=== PATIENT | male | born 1945 | race Asian ===

== ENCOUNTER 2019-11-06 14:36 | Observation (INO) | payer OTHER ==
--- NOTE | 2019-11-06 15:08 | PDOC ---
History of Present Illness - General Chief Complaint: Syncope/Near Syncope Stated Complaint: POSSIBLE SEIZURE Time Seen by Provider: 11/06/19 15:07 History Source: Patient Exam Limitations: No Limitations - History of Present Illness Initial Comments: 11/06/19 15:07 PCP: Dr. 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 Patient was at a family libertarian, reportedly did not eat or drink anything this morning, drank some sweetened milk and shortly thereafter felt lightheaded. Said he did not feel good, sat down. He experienced hand trembling and a slight head shaking , while talking with his daughters, for about 5 seconds. No CP / SOB / LH / Dizz at this time. These symptoms resolved by the time they took his BP (140s) and BGM (117). They called 911 to be safe and presented to the ED. Patient now feels at baseline. Denies chest pain, SOB, fever, chills, recent illness, cough , dyspnea, dysuria, leg swelling, numbness, tingling, weakness. No prior episodes of anything similar to this. No line service supervisor or cardiac history other than HTN. NKDA Meds per chart PMH: HTN PSH: Denies, remote toe procedure Past History - Past Medical History Allergies/Adverse Reactions: Allergies Allergy/AdvReac Type Severity Reaction Status Date / Time No Known Allergies Allergy Verified 02/18/15 22:40 Home Medications: Ambulatory Orders Metaxalone [Skelaxin] 800 mg PO TID PRN #15 tablet 02/18/15 Oxycodone HCl/Acetaminophen [Percocet 5/325 -] 1 tab PO Q6H PRN #12 tablet 02/18 HTN: Yes - Immunization History Immunization Up to Date: Yes - Psycho Social/Smoking Cessation Hx Smoking History: Never smoked Have you smoked in the past 12 months: No Hx Alcohol Use: No Drug/Substance Use Hx: No Substance Use Type: None Review of Systems - Review of Systems Able to Perform ROS?: Yes Is the patient limited Greenlandic proficient: Yes Constitutional: No: Chills, Fever, Weakness Cardiac (ROS): Yes: Syncope (pre-syncope). No: Chest Pain, Edema, Irregular Heart Rate, Lightheadedness, Palpitations, Chest Tightness ABD/GI: Yes: Poor Fluid Intake (this morning, good since). No: Constipated, Diarrhea, Nausea, Poor Appetite, Rectal Bleeding, Vomiting : No: Burning, Dysuria, Frequency Musculoskeletal: No: Muscle Pain, Muscle Weakness, Neck Pain Integumentary: No: Bruising, Pruritus, Rash Neurological: No: Headache, Numbness, Tingling, Weakness Psychiatric: No: Stressors, Change in Appetite Endocrine: No: Increased Thirst, Increased Urine Hematologic/Lymphatic: No: Anemia, Blood Clots, Easy Bleeding All Other Systems: Reviewed and Negative *Physical Exam - Vital Signs Last Vital Signs Temp Pulse Resp BP Pulse Ox 98.0 F 79 16 136/77 96 11/06/19 14:57 11/06/19 14:57 11/06/19 14:57 11/06/19 14:57 11/06/19 14:57 - Physical Exam 11/06/19 16:10 Vitals reviewed, AFVSS GEN: Well appearing, appears stated age, NAD, comfortable. AAOx3. HEENT: NCAT, EOMI, PERRL. Sclera anicteric, non-injected. No facial asymmetry. Moist mucous membranes. Normal voice. Trachea midline. CV: RRR, S1/S2, no murmurs / rubs / gallops appreciated. LUNG: CTAB, normal work of breathing. No wheezes, rales, rhonchi. No cough. Speaking full sentences. GI: Soft, NTND, +BS, no guarding, no rebound. No masses. Neg CVAT b/l. EXTREMITIES: 2+ distal pulses. No LE edema. No obvious deformities of all extremities. SKIN: Warm, dry, no rashes appreciated, non-jaundiced. PSYCH: Normal mood and affect. Cooperative and appropriate. NEURO: CN 2-12 intact. Moving all extremities well. Normal strength and sensation throughout. 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 History concerning for left sided hand shaking (focal) and reassuring for rapid symptomatic resolution. Exam unremarkable, vitals stable. DDX: R/o ACS, arrhythmia, less likely seizure given history will assess for mass lesion / ICH , most likely hypovolemia vs orthostatics vs vasovagal, electrolyte derivations. - CBC, CMP, Cardiac Profile - EKG, CXR - NCT EK BPM, NSR, borderline axis, QTc 424, T wave inversions in V4-V6 No prior EKGs available for comparison, patient without a line service supervisor, not aware of prior EKG changes 11/06/19 16:26 - Very mild LFT elevations - Negative Troponin - CBC / CMP WNL - Will repeat Troponin 2 hours from initial Dispo: Tele Obs for syncope / r/o ACS with T wave inversions Discharge - Discharge Information Problems reviewed: Yes Clinical Impression/Diagnosis: Pre-syncope - Follow up/Referral Referrals: Monika Valadez NP [Primary Care Provider] - - Patient Discharge Instructions - Post Discharge Activity
[2019-11-06 15:18] VITALS: BMI 29.9
[2019-11-06] MEDS ORDERED: SODIUM CHLORIDE 0.9% 500 ML INFUS.BAG IV ONE (15:35)
[2019-11-06 15:42] LABS: BASO % 0.8 % (0-2.0); EOS % 14.5 % (0-4.5); HEMATOCRIT 40.2 % (35.4-49); HEMOGLOBIN 13.9 GM/dL (11.7-16.9); LYMPH % 23.2 % (8-40); MCH 28.5 pg (25.7-33.7); MCHC 34.7 g/dl (32.0-35.9); MEAN CELL VOLUME 82.3 fl (80-96); MEAN PLT VOLUME 8.4 fl (7.5-11.1); MONO % 8.1 % (3.8-10.2); NEUT % 53.4 % (42.8-82.8); PLATELET COUNT 184 K/MM3 (134-434); RBC 4.89 M/mm3 (4.00-5.60); RDW 13.9 % (11.9-15.9); WHITE BLOOD COUNT 7.5 K/mm3 (4.0-10.0)
--- NOTE | 2019-11-06 15:51 | PDOC ---
Documentation entered by Deshawn Encarnacion SCRIBE, acting as scribe for John Negron MD. John Negron MD: This documentation has been prepared by the Alysha quintana Angel, SCRIBE, under my direction and personally reviewed by me in its entirety. I confirm that the documentation accurately reflects all work, treatment, procedures, and medical decision making performed by me. Attending Attestation - Resident Resident Name: Aron Su - ED Attending Attestation I have performed the following: I have examined & evaluated the patient, The case was reviewed & discussed with the resident, I agree w/resident's findings & plan, Exceptions are as noted - HPI HPI: 11/06/19 15:52 The patient is a 73 year old male with a past medical history of HTN and sciatica here today for evaluation of one episode of syncope. Patient states he did not eat or drink anything all day, went to a democrat with his family, began experiencing dizziness and fainted for a few seconds. Pt returned to baseline a minute after the episode. After receiving a plate of food and something to drink , the patient appears to be fine. The patient denies chest pain, shortness of breath. Denies fever, chills, cough , nausea, vomiting, diarrhea and constipation. Denies dysuria, frequency, urgency and hematuria. Allergies: NKDA - Physicial Exam PE: 11/06/19 15:48 EXAMINATION CONSTITUTIONAL: Well-appearing; well-nourished; in no apparent distress HEAD: Normocephalic; atraumatic EYES: PERRL; EOM intact ENMT: External appears normal; normal oropharynx NECK: Supple; non-tender; no cervical lymphadenopathy CARD: Normal S1, S2; no murmurs, rubs, or gallops RESP: Normal chest excursion with respiration; breath sounds clear and equal bilaterally; no wheezes, rhonchi, or rales ABD: Soft, non-distended; non-tender; no palpable organomegaly, no palpable hernias EXT: Normal ROM in all four extremities; + Right medial ankle swelling; non- tender to palpation; distal pulses intact SKIN: Warm, dry, no rash NEURO: No focal neurological deficiencies. - Medical Decision Making 11/06/19 15:50 Patient 73-year-old male with history of hypertension who presents to the ER after an episode of witnessed syncope. In the ER, patient is awake and alert, vital signs are noted. No focal neuro deficits are identified. EKG reveals normal sinus rhythm with T wave inversions in lateral leads; will obtain CBC/CMP /cardiac profile. Will obtain chest x-ray to evaluate for cardiomegaly. Likely obvious on telemetry for evaluation of syncope.
[2019-11-06 16:12] LABS: ALBUMIN 3.7 g/dl (3.4-5.0); ALK PHOS 71 U/L (45-117); ANION GAP 4 MMOL/L (8-16); BILIRUBIN,TOTAL 0.4 mg/dL (0.2-1); BLOOD UREA NITROGEN 12.7 mg/dL (7-18); CALCIUM 8.7 mg/dL (8.5-10.1); CHLORIDE 108 mmol/L (98-107); CO2 27 mmol/L (21-32); GLUCOSE,RANDOM 125 mg/dL (74-106); POTASSIUM 3.7 mmol/L (3.5-5.1); SGOT/AST 42 U/L (15-37); SGPT/ALT 62 U/L (13-61); SODIUM 139 mmol/L (136-145); TOT PROT 7.5 g/dl (6.4-8.2)
[2019-11-06] MEDS ORDERED: HEPARIN NA (PORCINE) 5,000 UNITS/ML 1ML VIAL SQ SCH (20:45)
[2019-11-06 21:36] VITALS: BP 138/77; PULSE 69; TEMP 98.4
[2019-11-07] MEDS ORDERED: CLOTRIMAZOLE 1%TOPICAL SOLUTION 30 ML BOTTLE TP PRN (00:46)
--- NOTE | 2019-11-07 01:01 | HP ---
CHIEF COMPLAINT: facial twitching PCP: HISTORY OF PRESENT ILLNESS: Pt 73 M with PMH HTN, sciatica who presented to ED with complaint of episode of L facial and L hand twitching. Pt states he did not lose consciousness. His left eye and L hand simply began twitching uncontrollably for not more than 30 seconds. He sat down and asked for water. Once it stopped, he felt well but came to ED with family to be safe. In ED he was found to have lateral TWI with no old EKG for comparison (pt follows at [facility]). At the time of my interview, pt felt back to baseline. No complaints. ER course was notable for: (1) (2) (3) Recent Travel: PAST MEDICAL HISTORY: as above PAST SURGICAL HISTORY: as above Social History: Smoking: denies Alcohol: social Drugs: denies Allergies No Known Allergies Allergy (Verified 11/06/19 22:07) HOME MEDICATIONS: Home Medications Medication Instructions Recorded Amlodipine Besylate [Norvasc -] 10 mg PO DAILY 11/06/19 Clotrimazole [Lotrimin 1% Solution 1 applic TP PRN PRN 11/06/19 -] Enalapril Maleate [Vasotec] 20 mg PO DAILY 11/06/19 Gabapentin [Neurontin -] 300 mg PO DAILY 11/06/19 Icosapent Ethyl [Vascepa] 2 gm PO BID 11/06/19 REVIEW OF SYSTEMS CONSTITUTIONAL: Absent: fever, chills, diaphoresis, generalized weakness, malaise, loss of appetite, weight change HEENT: Absent: rhinorrhea, nasal congestion, throat pain, throat swelling, difficulty swallowing, mouth swelling, ear pain, eye pain, visual changes CARDIOVASCULAR: Absent: chest pain, syncope, palpitations, irregular heart rate, lightheadedness , peripheral edema RESPIRATORY: Absent: cough, shortness of breath, dyspnea with exertion, orthopnea, wheezing, stridor, hemoptysis GASTROINTESTINAL: Absent: abdominal pain, abdominal distension, nausea, vomiting, diarrhea, constipation, melena, hematochezia GENITOURINARY: Absent: dysuria, frequency, urgency, hesitancy, hematuria, flank pain, genital pain MUSCULOSKELETAL: Absent: myalgia, arthralgia, joint swelling, back pain, neck pain SKIN: Absent: rash, itching, pallor HEMATOLOGIC/IMMUNOLOGIC: Absent: easy bleeding, easy bruising, lymphadenopathy, frequent infections ENDOCRINE: Absent: unexplained weight gain, unexplained weight loss, heat intolerance, cold intolerance NEUROLOGIC: facial twitching Absent: headache, focal weakness or paresthesias, dizziness, unsteady gait, seizure, mental status changes, bladder or bowel incontinence PSYCHIATRIC: Absent: anxiety, depression, suicidal or homicidal ideation, hallucinations. PHYSICAL EXAMINATION Vital Signs - 24 hr 11/06/19 11/06/19 11/06/19 14:57 14:59 20:35 Temperature 98.0 F 98.4 F Pulse Rate 79 Pulse Rate [ 79 69 Apical] Respiratory 16 16 23 H Rate Blood Pressure 136/77 Blood Pressure 119/72 138/77 [Right Arm] O2 Sat by Pulse 96 96 Oximetry (%) Gen: NAD, AAOx3 HEENT: NCAT, EOMI Neck: supple, no jvd Cardio: rrr, normal s1s2, no mrg Pulm: cta b/l Abd: obese, soft, nontender Laboratory Results - last 24 hr 11/06/19 11/06/19 11/06/19 15:30 15:30 17:31 WBC 7.5 RBC 4.89 Hgb 13.9 Hct 40.2 MCV 82.3 MCH 28.5 MCHC 34.7 RDW 13.9 Plt Count 184 MPV 8.4 Absolute Neuts (auto) 4.0 Neutrophils % 53.4 Lymphocytes % 23.2 Monocytes % 8.1 Eosinophils % 14.5 H Basophils % 0.8 Nucleated RBC % 0 Sodium 139 Potassium 3.7 Chloride 108 H Carbon Dioxide 27 Anion Gap 4 L BUN 12.7 Creatinine 1.0 Est GFR (CKD-EPI)AfAm 87.37 Est GFR (CKD-EPI)NonAf 75.39 Random Glucose 125 H Calcium 8.7 Total Bilirubin 0.4 AST 42 H ALT 62 H Alkaline Phosphatase 71 Creatine Kinase 209 Creatine Kinase Index 1.2 CK-MB (CK-2) 2.6 Troponin I < 0.02 < 0.02 Total Protein 7.5 Albumin 3.7 ASSESSMENT/PLAN: Pt 73 M with PMH HTN, sciatica who presented to ED with complaint of episode of L facial and L hand twitching. He was admitted for ACS r/o as he had TWI on EKG with no old ekg for comparison. ACS r/o -trend trop -tele -obs -cardio -echo Transaminitis -liver u/s HTN -will have to confirm home meds Visit type - Emergency Visit Emergency Visit: Yes ED Registration Date: 11/06/19 Care time: The patient presented to the Emergency Department on the above date and was hospitalized for further evaluation of their emergent condition. - New Patient This patient is new to me today: Yes Date on this admission: 11/07/19 - Critical Care Critical Care patient: No ATTENDING PHYSICIAN STATEMENT I saw and evaluated the patient. I reviewed the resident's note and discussed the case with the resident. I agree with the resident's findings and plan as documented. SUBJECTIVE: OBJECTIVE: ASSESSMENT AND PLAN:
--- NOTE | 2019-11-07 02:02 | PN ---
Teaching Attending Note Name of Resident: Michael Lerma ATTENDING PHYSICIAN STATEMENT I saw and evaluated the patient. 73-year-old male who had an episode of head twitching and left hand twitching which occurred on 11/06/2019 around 3 PM and lasted for about 1 minute. Not associated with any loss of consciousness, chest pain, headaches or other neurological deficits. Patient was initially supposed to remain in observation with telemetry as ED staff suspected syncope episode. Head CT was negative for any acute insults. EKG just showed some small T wave inversions in V5 and V6. Patient was otherwise asymptomatic. Chemistry just showed some mild transaminitis, troponins were negative x2. Patient chose to sign out AGAINST MEDICAL ADVICE and follow-up with his PCP at [facility]. Risks of doing so were explained to him.
[2019-11-07] MEDS ORDERED: PATIENT'S OWN MEDICATION (NON-FORMULARY) (Icosapent Ethyl [Vascepa] 2 GM) PO SCH (10:00)
[2019-11-07] MEDS ORDERED: amLODIPine BESYLATE 10 MG TABLET (FP) PO SCH (10:00)
[2019-11-07] MEDS ORDERED: GABAPENTIN 300 MG CAPSULE PO SCH (10:00)
[2019-11-07] MEDS ORDERED: ENALAPRIL MALEATE 10 MG TABLET (FP) PO SCH (10:00)
--- NOTE | 2019-11-08 09:53 | EKG ---
Test Reason : Blood Pressure : / mmHG Vent. Rate : 069 BPM Atrial Rate : 069 BPM P-R Int : 132 ms QRS Dur : 086 ms QT Int : 396 ms P-R-T Axes : 025 -47 255 degrees QTc Int : 424 ms NORMAL SINUS RHYTHM LEFT ANTERIOR FASCICULAR BLOCK NONSPECIFIC T WAVE ABNORMALITY ABNORMAL ECG NO PREVIOUS ECGS AVAILABLE Confirmed by Samy Davies ([id number]) on 11/08/2019 9:53:22 AM Referred By: Confirmed By:Samy Davies
== END 2019-11-06 23:01 | disposition left against medical advice (07) ==
LOC: JER 14:36 → JERBED 18:39
PROVIDERS: ADMIT Internal Medicine; ATTEND Internal Medicine
PROC: 3E0337Z Introduction of Electrolytic and Water Balance Substance into Peripheral Vein, Percutaneous Approach (ICD-10-PCS; principal; 2019-11-06)
DX: R55 Syncope and collapse (principal); I10 Essential (primary) hypertension; M54.30 Sciatica, unspecified side; R74.0 Nonspecific elevation of levels of transaminase and lactic acid dehydrogenase [LDH]
CPT/HCPCS: 36415; 70450-TC; 71046-TC-FY; 80053; 82550; 82553; 84484; 85025; 93005; 93010; 99285-25; G0378